=== PATIENT | male | born 1965 | race Caucasian/White ===

== ENCOUNTER 2017-06-21 11:07 | Inpatient (IN) | payer SELFPAY ==
[~2017-06-21] VITALS: Ht 188 cm; Wt 96.2 kg
[2017-06-21 11:09] VITALS: BP 136/83; PULSE 101; RESP 18; TEMP 98.2; O2SAT 97
--- NOTE | 2017-06-21 11:45 | PD ---
HPI Chief Complaint: Back/ Neck Pain or Injury Time Seen by Provider: 11:33 Travel History International Travel<30 days: No Contact w/Intl Traveler<30days: No Traveled to known affect area: No History of Present Illness HPI 51-year-old male presents to the emergency Department with complaint of low back pain with radiation down both of his legs 3 weeks. Denies injury. Has been seeing chiropractic and was sent for x-rays of his low back on Saturday which showed degenerative disc disease. He saw chiropractic this morning and was referred to the emergency department for MRI of the lumbar spine. He has had difficulty with his gait and bilateral lower extremity weakness for the past 3-4 days causing him to be unsteady and fall multiple times; says he has fallen twice today. He also reports being seen at [facility] yesterday and was given prescriptions for tramadol and Flexeril for symptom management. Low back pain is aggravated with movement. Denies encopresis, incontinence, saddle anesthesias. Denies paresthesias, loss of sensation to bilateral lower extremities. Reports decreased dorsiflexion of bilateral feet. Denies IV drug use or cancer. Denies fever, vomiting. Denies difficulty or change in urination or stool. No known allergies. Has no other medical complaints. No other modifying factors or associated signs and symptoms. [facility] Social History Tobacco Use: No Allergies-Medications (Allergen,Severity, Reaction): Coded Allergies: No Known Allergies (Unverified , 06/21/17) Review of Systems Except as stated in HPI: all other systems reviewed are Neg Physical Exam Narrative GENERAL: Well-nourished, well-developed male patient, in no acute distress; afebrile, nontoxic-appearing SKIN: Warm and dry. HEAD: Atraumatic. Normocephalic. EYES: Pupils equal and round. No scleral icterus. No injection or drainage. ENT: Mucosa pink and moist. Airway patent. NECK: Trachea midline. CARDIOVASCULAR: Regular rate. RESPIRATORY: No accessory muscle use. GASTROINTESTINAL: Rounded. RECTAL EXAM: No masses or tenderness. Rectal tone normal. MUSCULOSKELETAL: Bilateral lower extremities supple and non-tense with 2+ pedal pulses and sensory intact; full range of motion at the hip and knees; unable to fully dorsiflex bilateral feet; unable to dorsiflex bilateral feet against resistance. 2+ DTRs bilaterally. Active dorsiflexion is minimal; and active extension of bilateral feet normal. Bilateral straight leg raise is positive for low back pain. Ambulatory in room with unsteady gait. Sitting up in bed at 90. No obvious deformities. No clubbing. No cyanosis. No edema. BACK: I am unable to reproduce pain on palpation of the midline lumbar spine or paraspinal or iliosacral area. No obvious deformities. NEUROLOGICAL: Awake and alert. Oriented 3. No obvious cranial nerve deficits. Motor grossly within normal limits. Normal speech. Moves all extremities. 5/5 strength to all extremities. Sensory intact. PSYCHIATRIC: Appropriate mood and affect; insight and judgment normal. Data Data Last Documented VS Vital Signs Date Time Temp Pulse Resp B/P Pulse Ox O2 Delivery O2 Flow Rate FiO2 06/21/17 14:05 86 18 132/82 97 Room Air 06/21/17 11:09 98.2 Orders Mri L Spine W/O Contrast (06/21/17 ) Ketorolac Inj (Toradol Inj) (06/21/17 12:00) Complete Blood Count With Diff (06/21/17 14:11) Comprehensive Metabolic Panel (06/21/17 14:11) Prothrombin Time / Inr (Pt) (06/21/17 14:11) Act Partial Throm Time (Ptt) (06/21/17 14:11) Iv Access Insert/Monitor (06/21/17 14:11) Sodium Chloride 0.9% Flush (Ns Flush) (06/21/17 14:15) Electrocardiogram (06/21/17 14:11) Type And Screen (06/21/17 14:11) Chest, Pa & Lat (06/21/17 14:11) Labs Laboratory Tests Test 06/21/17 14:15 White Blood Count 14.5 TH/MM3 Red Blood Count 5.10 MIL/MM3 Hemoglobin 16.4 GM/DL Hematocrit 48.2 % Mean Corpuscular Volume 94.5 FL Mean Corpuscular Hemoglobin 32.1 PG Mean Corpuscular Hemoglobin 34.0 % Concent Red Cell Distribution Width 13.5 % Platelet Count 194 TH/MM3 Mean Platelet Volume 8.3 FL Neutrophils (%) (Auto) 85.2 % Lymphocytes (%) (Auto) 9.4 % Monocytes (%) (Auto) 5.0 % Eosinophils (%) (Auto) 0.1 % Basophils (%) (Auto) 0.3 % Neutrophils # (Auto) 12.3 TH/MM3 Lymphocytes # (Auto) 1.4 TH/MM3 Monocytes # (Auto) 0.7 TH/MM3 Eosinophils # (Auto) 0.0 TH/MM3 Basophils # (Auto) 0.0 TH/MM3 CBC Comment DIFF FINAL Differential Comment Prothrombin Time 11.3 SEC Prothromb Time International 1.0 RATIO Ratio Activated Partial 23.8 SEC Thromboplast Time MDM Medical Decision Making Medical Screen Exam Complete: Yes Emergency Medical Condition: Yes Medical Record Reviewed: Yes Differential Diagnosis Disc herniation, neural foramina compromise, bulging disc, low back pain Narrative Course 51-year-old male with complaint of low back pain and bilateral lower extremity weakness with an unsteady gait 3-4 days and low back pain 3 weeks. Was referred to the emergency department by chiropractor for MRI of the spine. I discussed physical exam findings and patient complained with Dr. Mahoney, my attending physician, and she recommended MRI without contrast of lumbar spine. Toradol administered in the ER. MRI lumbar spine ordered. 1356: I discussed MRI findings with Dr. Mahoney she recommended consulting neurosurgery and admitting the patient. Call placed to Dr. Galindo, neurosurgery. 1406: I spoke with Dr. Galindo and he is going to review the MRI and call back with disposition. 1411: Dr. Galindo callback and recommends patient to be admitted. Preop orders entered. 1420: Dr. Galindo at bedside. Patient will be admitted tot Dr. Nino and admit to ICU. . Physician Communication Physician Communication Dr. Galindo, neurosurgeon Diagnosis Primary Impression: Low back pain Qualified Code: M54.5 - Low back pain, unspecified back pain laterality, unspecified chronicity, with sciatica presence unspecified Additional Impression: Weakness of both lower extremities Admitting Information Admitting Physician Requests: Admit Dinah Mason Jun 21, 2017 11:45
[2017-06-21] MEDS ORDERED: ONDANSETRON HCL 4 MG/2 ML VIAL IV PUSH ONE (12:00)
[2017-06-21] MEDS ORDERED: KETOROLAC TROMETHAMINE 60 MG/2 ML (IM) VIAL IM ONE (12:00)
[2017-06-21] MEDS ORDERED: NORMOSOL R INJ 1,000 ML IV ONE (12:00)
[2017-06-21] MEDS ORDERED: NEOSTIGMINE METHYLSULFATE 10 MG/10 ML VIAL IV PUSH ONE (12:00)
[2017-06-21] MEDS ORDERED: PROPOFOL 200 MG/20 ML AMP IV ONE (12:00)
[2017-06-21] MEDS ORDERED: LACTATED RINGER'S 1000 ML INJ 1,000 ML IV ONE (12:00)
--- NOTE | 2017-06-21 13:48 | RADRPT ---
EXAM DATE/TIME: 06/21/2017 12:55 [facility] COMPARISON: No previous studies available for comparison. EXTERNAL COMPARISON : [facility], Lumbar x-ray, June 19, 2017 INDICATIONS : Back pain radiating down both legs with no known injury. MEDICAL HISTORY : None. SURGICAL HISTORY : Appendectomy. ENCOUNTER: Subsequent ACUITY: 3 weeks PAIN SCORE: 6/10 LOCATION: Bilateral lower back down both legs TECHNIQUE: Multiplanar multisequence MRI of the lumbar spine was performed without contrast. FINDINGS: The most caudal appearing lumbar vertebra is numbered as L5. Small cyst is present in the left kidney almost a centimeter in size. No significant compression deformities, spondylolysis or spondylolisthe sis is seen. T12-L1: There is no evidence for any significant compromise to the thecal sac, or the exiting nerve roots. N o appreciable thecal sac stenosis is seen. The neural foramina and lateral recess appear patent bila terally. L1-L2: Slight bulging disc and hypertrophic changes are seen with indentation on the thecal sac and no signi ficant compromise to the thecal sac or the exiting nerve roots. L2-L3: Significant overall thecal sac stenosis is seen due to hypertrophic changes with an approximate 1.5 c m hypertrophic bone protruding from the facet medially and some degree of bulging disc. There is mode rate neural foramina compromise on the left due to asymmetrical bulging disc and hypertrophic changes . L3-L4: Slight bulging disc and hypertrophic changes are seen with indentation on the thecal sac and no signi ficant compromise to the thecal sac or the exiting nerve roots. L4-L5: There is slight neural foramina compromise on the right due to asymmetrical bulging disc and hypertro phic changes. Moderate degenerative changes are seen within the disc space and facets. Slight bulging disc and hypertrophic changes are seen with indentation on the thecal sac and no significant comprom ise to the thecal sac. L5-S1: There is no evidence for any significant compromise to the thecal sac, or the exiting nerve roots. N o appreciable thecal sac stenosis is seen. The neural foramina and lateral recess appear patent bila terally. CONCLUSION: 1. Significant thecal sac stenosis L2-3. 2. Neuroforamina compromise left L2-3, right L4-L5. Mary Knight MD on June 21, 2017 at 13:41 Board Certified Radiologist. This report was verified electronically.
[2017-06-21 14:05] VITALS: BP 132/82; PULSE 86; RESP 18; O2SAT 97
[2017-06-21 14:29] LABS: AUTOMATED NEUTROPHIL # 12.3 TH/MM3 (1.8-7.7); BASOPHIL % 0.3 % (0.0-2.0); EOSINOPHIL % 0.1 % (0.0-4.0); HEMATOCRIT 48.2 % (39.0-51.0); HEMO FLAGS DIFF FINAL; LYMPH % 9.4 % (9.0-44.0); LYMPHOCYTE # 1.4 TH/MM3 (1.0-4.8); MEAN CELL VOLUME 94.5 FL (80.0-100.0); MEAN CORPUSCULAR HEMOGLOBIN 32.1 PG (27.0-34.0); NEUT % 85.2 % (16.0-70.0); PLATELET COUNT 194 TH/MM3 (150-450); RED CELL DISTRIBUTION WIDTH 13.5 % (11.6-17.2); WHITE BLOOD COUNT 14.5 TH/MM3 (4.0-11.0)
[2017-06-21 14:37] LABS: APTT (PATIENT) 23.8 SEC (24.3-30.1); PROTHROMBIN TIME - PATIENT 11.3 SEC (9.8-11.6)
[2017-06-21 14:46] LABS: ALKALINE PHOSPHATASE 60 U/L (45-117); TOTAL BILIRUBIN ADULT 0.5 MG/DL (0.2-1.0)
[2017-06-21 15:01] LABS: ALT (GPT) 20 U/L (12-78); ANION GAP 8 MEQ/L (5-15); AST (GOT) 18 U/L (15-37); BICARBONATE 25.4 MEQ/L (21.0-32.0); BLOOD UREA NITROGEN 10 MG/DL (7-18); CHLORIDE 103 MEQ/L (98-107); GLOMERULAR FILTRATION RATE 119 ML/MIN (>89); POTASSIUM 4.3 MEQ/L (3.5-5.1); SODIUM (NA) 136 MEQ/L (136-145)
[2017-06-21] MEDS ORDERED: fentaNYL CITRATE 250 MCG/5 ML AMP ONE ×2 (15:14→18:27)
--- NOTE | 2017-06-21 15:15 | RADRPT ---
EXAM DATE/TIME: 06/21/2017 14:44 [facility] COMPARISON: No previous studies available for comparison. INDICATIONS : Evaluate for pneumothorax, pneumonia, or communicable disease. Pre-operative for lumbar surgery. MEDICAL HISTORY : None. SURGICAL HISTORY : None. ENCOUNTER: Initial ACUITY: 1 day PAIN SCORE: 0/10 LOCATION: Bilateral chest FINDINGS: PA and lateral views of the chest demonstrate the lungs to be symmetrically aerated without evidence of mass, infiltrate or effusion. The cardiomediastinal contours are unremarkable. Osseous structure s are intact. CONCLUSION: No acute disease. Urban Telles MD FACR on June 21, 2017 at 15:13 Board Certified Radiologist. This report was verified electronically.
[2017-06-21] MEDS ORDERED: ACETAMINOPHEN 1000 MG/100 ML VIAL IV ONE (16:35)
[2017-06-21] MEDS ORDERED: FAMOTIDINE 20 MG/2 ML VIAL ONE (16:36)
[2017-06-21] MEDS ORDERED: MIDAZOLAM HCL 2 MG/2 ML VIAL ONE (16:36)
[2017-06-21] MEDS ORDERED: ceFAZolin 2 GM PREMIX 50 ML ONE (16:37)
--- NOTE | 2017-06-21 16:57 | MB ---
cc: JASON OLIVAS DATE OF CONSULTATION: 06/21/2017. REASON FOR CONSULTATION / ADMITTING DIAGNOSIS: Lumbar spinal mass with lower extremity weakness. ATTENDING PHYSICIAN: Dr. Nino. HISTORY OF PRESENT ILLNESS: This is a 51-year-old gentleman who has been experiencing intermittent lower extremity pain, numbness and tingling over the past month. For the past week, he has also been having weakness in his lower extremities with difficulty walking and recently has been unable bear weight. He presented to the emergency room for evaluation today and an MRI of the lumbar spine was performed. 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 Reactive end plate changes are noted at the L2 and L3 levels. Normal alignment. The patient was admitted at this time to undergo a decompressive laminectomy for excision of the mass. The patient has no history at this time of bowel or bladder dysfunction. No history of cancer or IV drug abuse. PAST MEDICAL HISTORY: Past medical history is unremarkable. CURRENT MEDICATIONS: None. ALLERGIES: None known. HABITS: The patient smokes a pack of cigarettes per day and also uses electronic cigarettes. He admits to using occasional marijuana but denies other illicit drug use. He also admits to a six pack or more a day. REVIEW OF SYSTEMS: Review of systems is pertinent as stated in the history of present illness, otherwise negative. EXAMINATION: GENERAL: A well-developed, well-nourished gentleman who is awake and alert and in no acute distress. HEAD, EYES, EARS, NOSE, THROAT: Head is atraumatic and normocephalic. Pupils are equal and reactive to light. Extraocular movements are intact. NECK: The neck is supple. Full range of motion. No posterior tenderness. CHEST: Clear to auscultation and percussion. HEART: Regular rate and rhythm. ABDOMEN: Abdomen soft and nontender. Bowel sounds are positive. RECTAL: Refused. NEUROLOGICAL EXAMINATION: The patient's mental status is normal. He is alert and oriented x3. Speech is intact to content and comprehension. Cranial nerves II-XII are intact. Motor function is 5/5 in the upper extremities and 5-/5 at the iliopsoas bilaterally, 5/5 at the quadriceps bilaterally. Dorsiflexors 3/5 bilaterally. Plantar flexors 5-/5 bilaterally. Deep tendon reflexes are 2/4 biceps, absent triceps, absent knees, absent ankles. Sensory examination shows intact sensation to light touch and pain sensation throughout the lower extremities; however the patient does have paresthetic sensations throughout the lower extremities non- dermatomal. 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 PLAN: The patient will be taken to the operating room for decompressive laminectomy and excision of the mass. The risks and benefits of the surgery were explained to the patient and include but are not limited to bleeding, infection, paralysis, bowel or bladder dysfunction and . He understands the risks and his questions were answered to his satisfaction. He chooses to proceed with surgery. MD NIR Sanderson/GRAZYNA /2:41 PM /4:40 PM
[2017-06-21] MEDS ORDERED: ceFAZolin INJ 1,000 MG VIAL IV ONE (17:00)
[2017-06-21] MEDS ORDERED: GELFOAM SIZE 100 TOPICAL ONE (18:04)
[2017-06-21] MEDS ORDERED: THROMBIN (TOPICAL) 5,000 UNIT VIAL TOPICAL ONE (18:04)
[2017-06-21] MEDS ORDERED: LIDOCAINE 1%/EPINEPHrine 1:200,000 PF SOLN 10 ML VIAL INFIL ONE (18:14)
[2017-06-21] MEDS ORDERED: GENTAMICIN SULFATE 80 MG/2 ML VIAL IRRIGATION ONE (18:15)
[2017-06-21] MEDS ORDERED: DO NOT ADM ANY ANTICOAGULANT DRUGS PRN (20:07)
--- NOTE | 2017-06-21 20:28 | RADRPT ---
EXAM DATE/TIME: 06/21/2017 17:36 [facility] COMPARISON: No previous studies available for comparison. INDICATIONS : L2/L3 laminectomy. MEDICAL HISTORY : None. SURGICAL HISTORY : None. ENCOUNTER: Initial ACUITY: 1 day PAIN SCORE: Non-responsive. LOCATION: Lumbar spine. FINDINGS: A single lateral view of the lumbar spine was performed. Curved probe overlies the posterior elements of L3 based on numbering from recent MRI. CONCLUSION: 1. Level localization as above. Sam Price MD on June 21, 2017 at 20:25 Board Certified Radiologist. This report was verified electronically.
[2017-06-21] MEDS ORDERED: SODIUM CHLORIDE 0.9% FLUSH 5 ML FLUSH IVF PRN (20:30)
[2017-06-21] MEDS ORDERED: NALOXONE HCL 0.4 MG/ML AMP IV PRN (20:30)
[2017-06-21] MEDS ORDERED: FLUMAZENIL 0.5 MG/5 ML VIAL IV PUSH PRN (20:30)
[2017-06-21] MEDS ORDERED: LORazepam 1 MG TAB PO PRN (20:30)
--- NOTE | 2017-06-21 20:46 | PD.OP ---
Operative Report Date of Surgery: Jun 21, 2017 Preoperative Diagnosis: (1) Synovial cyst of lumbar facet joint (2) Paraparesis of both lower limbs L2-3 synovial cyst Severe lumbar stenosis Lower extremity paraparesis Postoperative Diagnosis: (1) Synovial cyst of lumbar facet joint (2) Paraparesis of both lower limbs L2-3 synovial cyst Severe lumbar stenosis Lower extremity paraparesis Procedure: Left L2-3 decompressive semi-hemilaminectomy Resection left L2-3 synovial cyst Anesthesia: Gen. Surgeon: Rodger Nino Second Shift Supervisor(s): Carli Perdue Operation and Findings: Findings: Large synovial cyst arising from left L2-3 facet and extending cephalad to the level of the left L2 pedicle. Significant hemorrhage within the cyst. Severe adhesions to the thecal sac significant thinning of the dura. Procedure in detail: The patient was brought into the operating room and general endotracheal anesthesia induced without difficulty. JUNE hose and sequential compression devices were placed. Lines were established by anesthesia. The patient was positioned on the concentric Kendrick table with the side bolsters and all extremities appropriately padded. Appropriate time-out procedure was performed with all personnel present and in agreement. 1% Xylocaine with epinephrine was used for local infiltration over the incision site which was made just to the left of midline at the L2-3 level. The incision was carried sharply down to the lumbodorsal fascia which was incised adjacent to the spinous processes. Ramos elevator was used for subperiosteal elevation of paraspinous musculature and fascia away from the lamina and spinous process. The deep self-retaining retractor was placed. The appropriate levels were verified with intraoperative C-arm. Microscope was moved into place and used for the remainder of the procedure including the closure. At the L2-3 level starting on the left side and then working across the midline to the opposite side, the TPS drill with a 5 mm bone bur followed by the 4 mm leora bur was used to remove the inferior two thirds of the L2 lamina and the superior aspect of the L3 lamina along with a moderate amount of the left medial facet, taking care not to disrupt the integrity of the facet or pars intra-articularis. The hypertrophied ligamentum flavum was elevated away from the thecal sac with the thin ligament dissector and resected with the 15 blade knife and the Kerrison rongeur Physical ligament was elevated from a medial to lateral direction, the large left L2-3 synovial cyst was encountered. The left L3 nerve root was exposed adjacent to the left L3 pedicle and traced back towards the thecal sac. The synovial cyst was elevated in a caudal to cranial direction with from the L3 nerve root away from the thecal sac. There was severe indentation of the thecal sac at the region cephalad to the L2-3 disc space. The thecal sac was very thin in this region. The cyst was opened and a large amount of dark chronic-appearing hematoma and caseous-appearing material was evacuated. This allowed further exposure of the more cephalad portion of the cyst and resection away from the thecal sac with the microscissors were the cyst was densely adherent to the dura. The exiting L2 and L3 nerve roots were followed to the level of the medial pedicle to ensure that they were well decompressed. At The nerve roots appeared well decompressed at the end of the procedure. No spinal fluid leakage was encountered. The disc and annulus at the left L2-3 level was visualized to make sure that there was no significant disc displacement or herniation. Bleeding was carefully controlled with the bipolar forceps. The closure was performed with 0 Vicryl interrupted for the deep and superficial fascia, with 3-0 Vicryl interrupted subcutaneous closure, and 4-0 PDS running subcuticular closure. A dressing of sterile Mastisol, Steri-Strips , and Primapore was placed. The patient was taken to recovery room in stable condition. All counts were correct at the end of the case. Estimated blood loss was 50 cc. Specimen of the synovial cyst was sent to pathology. Rodger Nino MD Jun 21, 2017 20:45
[2017-06-21] MEDS ORDERED: HYDROmorphone HCL 2 MG TAB PO PRN (21:00)
[2017-06-21] MEDS: SODIUM CHLORIDE 0.9% FLUSH 5 ML FLUSH IVF SCH (21:00)
[2017-06-21] MEDS ORDERED: ONDANSETRON HCL 4 MG/2 ML VIAL IV PRN (21:00)
[2017-06-21] MEDS: DOCUSATE SODIUM 100 MG CAP PO SCH (21:00)
[2017-06-21] MEDS ORDERED: MORPHINE SULFATE 4 MG/ML INJ IV PRN (21:00)
[2017-06-21] MEDS: D5-1/2 NS + KCL 20 MEQ INJ 1,000 ML IV SCH ×2 (21:00→23:04)
[2017-06-21 22:16] VITALS: BP 124/73; PULSE 63; RESP 20; TEMP 97.5; O2SAT 96
[2017-06-22] VITALS: BP 117/66; PULSE 89; RESP 20; TEMP 97.6; O2SAT 97
[2017-06-22 04:00] VITALS: BP 122/71; PULSE 60; RESP 20; TEMP 98.5; O2SAT 95
[2017-06-22 08:52] VITALS: BP 112/63; PULSE 61; RESP 18; TEMP 98.2; O2SAT 92
[2017-06-22] MEDS: SODIUM CHLORIDE 0.9% FLUSH 10 ML FLUSH IV FLUSH PRN ×2 (08:53→20:26)
[2017-06-22] MEDS: D5-1/2 NS + KCL 20 MEQ INJ 1,000 ML IV SCH ×2 (08:53→20:31)
[2017-06-22] MEDS: THIAMINE HCL 100 MG TAB PO SCH (08:54)
[2017-06-22] MEDS: FOLIC ACID 1 MG TAB PO SCH (08:55)
[2017-06-22] MEDS: DOCUSATE SODIUM 100 MG CAP PO SCH ×2 (08:55→20:23)
[2017-06-22] MEDS: PANTOPRAZOLE SOD 40 MG DELAYED RELEASE TAB PO SCH (08:55)
[2017-06-22] MEDS: SODIUM CHLORIDE 0.9% FLUSH 5 ML FLUSH IVF SCH ×2 (08:55→20:26)
[2017-06-22] MEDS: MULTIVITAMINS/MINERALS THERAPEUTIC TAB PO SCH (08:56)
[2017-06-22 09:55] LABS: AUTOMATED NEUTROPHIL # 10.3 TH/MM3 (1.8-7.7); BASOPHIL % 0.1 % (0.0-2.0); EOSINOPHIL % 0.1 % (0.0-4.0); HEMATOCRIT 42.3 % (39.0-51.0); HEMO FLAGS DIFF FINAL; LYMPH % 17.1 % (9.0-44.0); LYMPHOCYTE # 2.3 TH/MM3 (1.0-4.8); MEAN CELL VOLUME 94.3 FL (80.0-100.0); MEAN CORPUSCULAR HEMOGLOBIN 32.4 PG (27.0-34.0); MEAN CORPUSCULAR HGB CONC 34.3 % (32.0-36.0); NEUT % 76.7 % (16.0-70.0); PLATELET COUNT 172 TH/MM3 (150-450); RED BLOOD COUNT 4.49 MIL/MM3 (4.50-5.90); RED CELL DISTRIBUTION WIDTH 13.6 % (11.6-17.2); WHITE BLOOD COUNT 13.4 TH/MM3 (4.0-11.0)
[2017-06-22 10:10] LABS: BICARBONATE 26.4 MEQ/L (21.0-32.0)
[2017-06-22 10:14] LABS: INDIRECT BILIRUBIN 0.3 MG/DL (0.0-0.8); TOTAL BILIRUBIN ADULT 0.4 MG/DL (0.2-1.0)
--- NOTE | 2017-06-22 10:17 | HHI.NSPN ---
History Interval History Postop day 1 status posts L2-3 laminectomy for excision of synovial cyst. Patient did very good spirits with complaints of only minimal incisional pain. Notes significant improvement in his lower extremity function. Exam Results Vital Signs Date Time Temp Pulse Resp B/P Pulse Ox O2 Delivery O2 Flow Rate FiO2 06/22/17 08:52 98.2 61 18 112/63 92 06/21/17 21:30 Nasal Cannula 2 Intake and Output 06/21/17 06/21/17 06/22/17 08:00 16:00 00:00 Intake Total 1460 ml Output Total 600 ml Balance 860 ml Physical Examination Neurological examination today shows normal motor function upper extremities. Lower extremity is 5 over 5 except dorsiflexors which are 5 minus over 5 bilaterally. Sensory intact to primary modalities. Lumbar incision dressing dry and intact. Lab, Micro, Other Results Laboratory Tests Test 06/21/17 06/22/17 14:15 08:25 White Blood Count 14.5 13.4 Red Blood Count 5.10 4.49 Hemoglobin 16.4 14.5 Hematocrit 48.2 42.3 Mean Corpuscular Volume 94.5 94.3 Mean Corpuscular Hemoglobin 32.1 32.4 Mean Corpuscular Hemoglobin 34.0 34.3 Concent Red Cell Distribution Width 13.5 13.6 Platelet Count 194 172 Mean Platelet Volume 8.3 8.8 Neutrophils (%) (Auto) 85.2 76.7 Lymphocytes (%) (Auto) 9.4 17.1 Monocytes (%) (Auto) 5.0 6.0 Eosinophils (%) (Auto) 0.1 0.1 Basophils (%) (Auto) 0.3 0.1 Neutrophils # (Auto) 12.3 10.3 Lymphocytes # (Auto) 1.4 2.3 Monocytes # (Auto) 0.7 0.8 Eosinophils # (Auto) 0.0 0.0 Basophils # (Auto) 0.0 0.0 CBC Comment DIFF FINAL DIFF FINAL Differential Comment Prothrombin Time 11.3 Prothromb Time International 1.0 Ratio Activated Partial 23.8 Thromboplast Time Sodium Level 136 137 Potassium Level 4.3 4.0 Chloride Level 103 104 Carbon Dioxide Level 25.4 26.4 Anion Gap 8 7 Blood Urea Nitrogen 10 13 Creatinine 0.70 0.69 Estimat Glomerular Filtration 119 121 Rate Random Glucose 131 140 Calcium Level 9.8 9.0 Total Bilirubin 0.5 0.4 Aspartate Amino Transf 18 14 (AST/SGOT) Alanine Aminotransferase 20 18 (ALT/SGPT) Alkaline Phosphatase 60 53 Total Protein 7.6 6.2 Albumin 4.2 3.4 Blood Type A POSITIVE Antibody Screen NEGATIVE Blood Bank Comment Direct Bilirubin 0.1 Indirect Bilirubin 0.3 Medical Decision Making Impression and Plan Status post excision of synovial cyst with stable postoperative course. Plan: Will begin physical therapy today for ambulation. Home when walking stably. Gonzalo Galindo MD Jun 22, 2017 10:17
[2017-06-22 11:56] VITALS: BP 114/64; PULSE 74; RESP 18; TEMP 97.8; O2SAT 94
[2017-06-22] MEDS: ACETAMINOPHEN/HYDROcodone 325 MG/5 MG TAB PO PRN ×2 (14:15→20:24)
--- NOTE | 2017-06-22 16:05 | EKG ---
Date Performed: 06/21/2017 Time Performed: 15:00:04 PTAGE: 51 years EKG: Sinus rhythm NORMAL ECG NO PREVIOUS TRACING DOCTOR: Kartik Vo Interpretating Date/Time 06/24/2017 06:57:01
[2017-06-22 17:20] VITALS: BP 132/69; PULSE 76; RESP 18; TEMP 98.7; O2SAT 96
[2017-06-22 20:00] VITALS: BP 119/64; PULSE 71; RESP 20; TEMP 98.8; O2SAT 94
[2017-06-23] VITALS (7 sets, daily range): BP systolic 113–135; BP diastolic 66–79; PULSE 65–89; RESP 18–20; TEMP 97.6–98.9; O2SAT 94–100
[2017-06-23] MEDS: ACETAMINOPHEN/HYDROcodone 325 MG/5 MG TAB PO PRN ×3 (05:54→19:43)
[2017-06-23] MEDS: SODIUM CHLORIDE 0.9% FLUSH 5 ML FLUSH IVF SCH ×2 (09:00→19:44)
[2017-06-23] MEDS: DOCUSATE SODIUM 100 MG CAP PO SCH ×2 (09:02→19:43)
[2017-06-23] MEDS: SODIUM CHLORIDE 0.9% FLUSH 10 ML FLUSH IV FLUSH PRN ×2 (09:02→19:43)
[2017-06-23] MEDS: PANTOPRAZOLE SOD 40 MG DELAYED RELEASE TAB PO SCH (09:02)
[2017-06-23] MEDS: THIAMINE HCL 100 MG TAB PO SCH (09:02)
[2017-06-23] MEDS: D5-1/2 NS + KCL 20 MEQ INJ 1,000 ML IV SCH ×2 (09:03→21:12)
[2017-06-23] MEDS: FOLIC ACID 1 MG TAB PO SCH (09:03)
[2017-06-23] MEDS: MULTIVITAMINS/MINERALS THERAPEUTIC TAB PO SCH (09:03)
--- NOTE | 2017-06-23 11:40 | HHI.NSPN ---
History Interval History Postop day 2 status posts L2-3 laminectomy for excision of synovial cyst. Patient did very good spirits with complaints of only minimal incisional pain. He has ambulated with physical therapy in the hallways and using a walker. He notes good strength but having difficulty with balance control at this time. Exam Results Vital Signs Date Time Temp Pulse Resp B/P Pulse Ox O2 Delivery O2 Flow Rate FiO2 06/23/17 08:00 97.6 65 18 122/74 94 06/21/17 21:30 Nasal Cannula 2 Intake and Output 06/22/17 06/22/17 06/22/17 07:59 15:59 23:59 Intake Total 581 ml 829 ml Output Total 850 ml Balance 581 ml -850 ml 829 ml Physical Examination Neurological examination today shows normal motor function upper extremities. Lower extremity is 5 over 5. 5-/5 dorsiflexors. Sensory intact to primary modalities. Lumbar incision dressing dry and intact. Medical Decision Making Impression and Plan Status post excision of synovial cyst with stable postoperative course. Plan: Patient lives on a sail[place]. He is questioning whether he would like to go to rehab versus discharge to a friend's home. Will continue physical therapy and reassess tomorrow. Gonzalo Galindo MD Jun 23, 2017 11:40
[2017-06-24] VITALS: BP 108/58; PULSE 69; RESP 20; TEMP 97.9; O2SAT 95
[2017-06-24 04:00] VITALS: BP 142/79; PULSE 75; RESP 20; TEMP 97.8; O2SAT 97
[2017-06-24] MEDS: ACETAMINOPHEN/HYDROcodone 325 MG/5 MG TAB PO PRN (06:43)
[2017-06-24 08:00] VITALS: BP 132/85; PULSE 74; RESP 16; TEMP 98.1; O2SAT 96
[2017-06-24] MEDS: THIAMINE HCL 100 MG TAB PO SCH (08:22)
[2017-06-24] MEDS: MULTIVITAMINS/MINERALS THERAPEUTIC TAB PO SCH (08:23)
[2017-06-24] MEDS: DOCUSATE SODIUM 100 MG CAP PO SCH (08:23)
[2017-06-24] MEDS: PANTOPRAZOLE SOD 40 MG DELAYED RELEASE TAB PO SCH (08:23)
[2017-06-24] MEDS: FOLIC ACID 1 MG TAB PO SCH (08:24)
[2017-06-24] MEDS: SODIUM CHLORIDE 0.9% FLUSH 5 ML FLUSH IVF SCH (08:24)
[2017-06-24] MEDS: D5-1/2 NS + KCL 20 MEQ INJ 1,000 ML IV SCH (09:15)
[2017-06-24 09:55] VITALS: O2SAT 96
--- NOTE | 2017-06-24 11:11 | HHI.NSPN ---
(Gerardo Charles) History Chief Complaint: Some soreness to the surgical site and aching to the calves. (Gerardo Charles) Interval History 06/21: This is a 51-year-old gentleman who has been experiencing intermittent lower extremity pain, numbness and tingling over the past month. For the past week, he has also been having weakness in his lower extremities with difficulty walking and recently has been unable bear weight. He presented to the emergency room for evaluation today and an MRI of the lumbar spine was performed. 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 Reactive end plate changes are noted at the L2 and L3 levels. Normal alignment. The patient was admitted at this time to undergo a decompressive laminectomy for excision of the mass. The patient has no history at this time of bowel or bladder dysfunction. No history of cancer or IV drug abuse. 7:29: Postop day 1 status posts L2-3 laminectomy for excision of synovial cyst. Patient did very good spirits with complaints of only minimal incisional pain. Notes significant improvement in his lower extremity function. 30: Postop day 2 status posts L2-3 laminectomy for excision of synovial cyst. Patient did very good spirits with complaints of only minimal incisional pain. He has ambulated with physical therapy in the hallways and using a walker. He notes good strength but having difficulty with balance control at this time. 06/24: Patient is doing well when seen this morning. Prior to being assessed he was seen ambulating the hallway without any difficulty using a wheeled walker. He states he has some soreness to the surgical incision but no back pain. He also endorsed some aching to both calves that he relates to not having been able to walk the past few days. (Gerardo Charles) System Review Comments CONSTITIONAL: The patient denies any fever or chills. INTEGUMENTARY: The patient states he has a surgical incision to the back. He denies rashes, ulcerations or other lesions. HEENT: The patient denies any visual or hearing problems. NECK: The patient denies any neck pain or difficulty moving the neck. CARDIOVASCULAR: The patient denies any chest pain, palpitations or irregular heartbeat. RESPIRATORY: The patient denies any shortness of breath or productive cough. GASTROINTESTINAL: The patient denies any abdominal pain, nausea, vomiting or incontinence of stool. GENITOURINARY: The patient denies any incontinence of urine. MUSCULOSKELETAL: The patient has some soreness to the surgical incision and some aching to both calves. He denies any weakness or other pain to the extremities. NEUROLOGICAL: The patient denies any headache, dizziness, numbness or tingling. (Gerardo Charles) Exam Results Vital Signs Date Time Temp Pulse Resp B/P Pulse Ox O2 Delivery O2 Flow Rate FiO2 06/24/17 08:00 98.1 74 16 132/85 96 06/23/17 19:42 21 06/21/17 21:30 Nasal Cannula 2 Intake and Output 06/23/17 06/23/17 06/23/17 07:59 15:59 23:59 Intake Total 600 ml 480 ml Balance 600 ml 480 ml (Gerardo Charles) Physical Examination GENERAL: The patient is seen ambulating in the room with a wheeled walker, NAD, normal affect. SKIN: Intact surgical dressing to the lower back w/o any evident drainage, erythema or streaking, mildly TTP. No discolouration, rashes, ulcerations or other lesions noted. HEENT: Normocephalic, atraumatic. NECK: Full active ROM w/o difficulty or pain, no JVD, trachea midline. CARDIOVASCULAR: S1S2 w/RRR w/o M/G/R, radial & pedal pulses 2+ bilaterally, cap refill < 2 sec, no pedal edema. RESPIRATORY: CTAB w/o W/R/R, equal excursion, nonlaboured, on RA. GASTROINTESTINAL: Abdomen soft, nontender, positive bowel sounds. MUSCULOSKELETAL: KHANNA w/o difficulty, bilateral calves mildly TTP, no evident deformities or clubbing. NEUROLOGICAL: AAOx3. Speech clear & appropriate. Follows simple commands w/o difficulty. Sensation intact to light touch to all extremities. Motor strength 5/5 to all major flexion & extension muscles groups except plantar flexion & extension 3+ to 4/5 bilaterally. (Gerardo Charles) Medical Decision Making Impression and Plan Impression: (1) Synovial cyst of lumbar facet joint (2) Paraparesis of both lower limbs L2-3 synovial cyst Severe lumbar stenosis Lower extremity paraparesis PT recommends wheeled walker and home w/outpatient therapy vs no therapy. It is noted that the [place] but he intends to go to his [id number] house at discharge. Patient doing well and neurologically stable, pain well controlled. POD #3 () s/p : 1. Left L2-3 decompressive semi-hemilaminectomy 2. Resection left L2-3 synovial cyst Plan: Continue neuro checks. PT eval & tx. Possible discharge home later today. (Gerardo Charles) Attending Statement I have personally seen and examined the patient on the date of this note. Pertinent documentation and study results have been reviewed by the undersigned. I have personally developed the treatment plan and performed medical decision making. Agree with findings, exam, and treatment plan as noted above. Patient is awake and alert. Comfortable. Ambulating well today. Tolerating diet. Moderate low back pain. No significant pain which is numbness in the lower extremities no complaint of bowel or bladder dysfunction Sensation intact to light touch lower extremities Mild residual weakness bilateral tibialis anterior, otherwise intact motor function in the lower extremities. Discussed with patient and family. Okay for discharge home today Wound care, activity precautions, signs and symptoms to watch for fully discussed. All questions answered. He well follow up as an outpatient in approximately 1 week (Rodger Nino MD) Gerardo Charles Jun 24, 2017 11:11 Rodger Nino MD Jun 24, 2017 19:05
[2017-06-24 12:00] VITALS: BP 126/70; PULSE 84; RESP 17; TEMP 98; O2SAT 96
[2017-06-24 16:00] VITALS: BP 120/79; PULSE 87; RESP 17; TEMP 99.8; O2SAT 97
[2017-06-24] MEDS ORDERED: HYDR-3516 PO (19:06)
--- NOTE | 2017-06-24 19:07 | HHI.DCPOC ---
Discharge Care Plan Your Health Problems Are: Difficulty with ADL Incision/Drains Exercise Tolerance Chronic Pain Goals to Promote Your Health * To prevent worsening of your condition and complications * To maintain your health at the optimal level Directions to Meet Your Goals Take your medications as prescribed Follow your dietary instruction Follow activity as directed Keep your appointments as scheduled Take your immunizations and boosters as scheduled If your symptoms worsen call your PCP, if no PCP go to Urgent Care Center or Emergency Room Smoking is Dangerous to Your Health. Avoid second hand smoke Call the 24-hour hour crisis hotline for domestic abuse at Rodger Nino MD Jun 24, 2017 19:07
--- NOTE | 2017-06-24 19:10 | HHI.DS ---
Discharge Summary Admission Date Jun 21, 2017 at 14:40 Discharge Date: Jun 24, 2017 Admitting Diagnosis low back pain; BLE weakness; neural foramina compromise (1) Synovial cyst of lumbar facet joint ICD Code: M71.38 (2) Paraparesis of both lower limbs ICD Code: G82.20 (3) Low back pain ICD Code: M54.5 CBC/BMP: 06/22/17 0825 06/22/17 0825 Significant Findings Laboratory Tests Test 06/22/17 08:25 White Blood Count 13.4 TH/MM3 (4.0-11.0) Red Blood Count 4.49 MIL/MM3 (4.50-5.90) Neutrophils (%) (Auto) 76.7 % (16.0-70.0) Neutrophils # (Auto) 10.3 TH/MM3 (1.8-7.7) Random Glucose 140 MG/DL (74-106) Aspartate Amino Transf 14 U/L (15-37) (AST/SGOT) Total Protein 6.2 GM/DL (6.4-8.2) Imaging Last Impressions Chest X-Ray 06/21/17 1411 Signed Impressions: Service Date/Time: Wednesday, June 21, 2017 14:44 - CONCLUSION: No acute disease. Urban Telles MD FACR Lumbar Spine X-Ray 06/21/17 0000 Signed Impressions: Service Date/Time: Wednesday, June 21, 2017 17:36 - CONCLUSION: 1. Level localization as above. Sam Price MD Lumbar Spine MRI 06/21/17 0000 Signed Impressions: Service Date/Time: Wednesday, June 21, 2017 12:55 - CONCLUSION: 1. Significant thecal sac stenosis L2-3. 2. Neuroforamina compromise left L2-3, right L4-L5. K. Ronni Knight MD PE at Discharge Patient is awake and alert. Comfortable. Ambulating well today. Tolerating diet. Moderate low back pain. No significant pain which is numbness in the lower extremities no complaint of bowel or bladder dysfunction Sensation intact to light touch lower extremities Hospital Course Patient admitted through the emergency room with severe progressive low back pain with radiation of the lower extremities, 3-4 days of progressive lower extremity weakness numbness, and unable to ambulate. Preoperative imaging as noted above. Date of Surgery: Jun 21, 2017 Preoperative Diagnosis: (1) Synovial cyst of lumbar facet joint (2) Paraparesis of both lower limbs L2-3 synovial cyst Severe lumbar stenosis Lower extremity paraparesis Postoperative Diagnosis: (1) Synovial cyst of lumbar facet joint (2) Paraparesis of both lower limbs L2-3 synovial cyst Severe lumbar stenosis Lower extremity paraparesis Procedure: Left L2-3 decompressive semi-hemilaminectomy Resection left L2-3 synovial cyst Postoperative course uneventful. By 06/24/17 tolerating diet, ambulating well without assist, lower extremity pain and sensorimotor function markedly improved, mild residual weakness bilateral tibialis anterior. Wound care, activity precautions, use of medications, avoidance of NSAIDs and aspirin fully discussed with the patient. Stable for discharge home 06/24/17. Pt Condition on Discharge: Good Discharge Disposition: Discharge Home Discharge Instructions DIET: Follow Instructions for: As Tolerated, No Restrictions ACTIVITIES You can perform: Weight Bearing As Enrique Activities to Avoid: Lifting/Bending, Strenuous Activity New Medications: Hydrocodone-Acetaminophen (Hydrocodone-Acetaminophen) 5-325 mg Tab 1 TAB PO Q4H PRN PAIN SCALE 3 TO 5 #30 Ref 0 TAB Rodger Nino MD Jun 24, 2017 19:10
== END 2017-06-24 20:14 | disposition home or self-care (01) | DRG 519 ==
LOC: NEPK 11:07 → NEDA 14:40 → N05A 22:08
PROVIDERS: ADMIT Neurological Surgery; ATTEND Neurological Surgery
PROC: 0SB00ZZ Excision of Lumbar Vertebral Joint, Open Approach (ICD-10-PCS; 2017-06-21)
PROC: 01NB0ZZ Release Lumbar Nerve, Open Approach (ICD-10-PCS; principal; 2017-06-21 16:39)
DX: M71.38 Other bursal cyst, other site (principal); G83.4 Cauda equina syndrome; G82.20 Paraplegia, unspecified; F17.210 Nicotine dependence, cigarettes, uncomplicated; M48.06 Spinal stenosis, lumbar region; F17.290 Nicotine dependence, other tobacco product, uncomplicated; R29.6 Repeated falls
CPT/HCPCS: 71020; 72020; 72148; 76000; 80048; 80053; 80076; 85025; 85610; 85730; 86850; 86900; 86901; 88304; 88307; 93005; 94150; 96372; J0131; J0690; J1580; J1885; J2250; J2405; J2710; J3010; J3480; J7120